=== PATIENT | female | born 1985 | race Caucasian/White ===

== ENCOUNTER 2021-11-25 10:57 | Day surgery (SDC) | payer BC, MEDICAID ==
[~2021-11-25 10:57] MED LIST: Lactated Ringers 1,000 ML IV SCH; Lidocaine 1%/Sod Bicarbonate in NS 8.4% 1 ML Syringe IDERM PRN; Sodium Chloride 0.9% 10 ML Syringe FLUSH PRN; Sodium Chloride 0.9% 10 ML Syringe FLUSH SCH
[2021-11-25] MEDS ORDERED: Succinylcholine/Sod PF 100 MG/5 ML SYRINGE IV ONE (13:08)
[2021-11-25] MEDS ORDERED: Rocuronium 50 MG/5 ML Vial ONE ×2 (13:08→14:32)
[2021-11-25] MEDS ORDERED: Propofol 200 MG/20 ML SDV ONE (13:08)
[2021-11-25] MEDS ORDERED: fentaNYL 100 MCG/2 ML SDV ONE ×2 (13:09→14:34)
[2021-11-25] MEDS ORDERED: Midazolam 1 MG/ML 2 ML SDV ONE (13:09)
[2021-11-25] MEDS: Lidocaine 1% with EPINEPHrine 1:100,000 10 ML MDV ONE ×2 (14:01→14:21)
[2021-11-25] MEDS ORDERED: Ondansetron 4 MG/2 ML SDV ONE (14:17)
[2021-11-25] MEDS ORDERED: Sugammadex Sodium 200 MG/2 ML VIAL ONE (14:23)
[2021-11-25] MEDS ORDERED: Lidocaine 1% with EPINEPHrine 1:100,000 10 ML MDV ONE (14:38)
[2021-11-25] MEDS ORDERED: fentaNYL 100 MCG/2 ML SDV IVPUSH PRN (15:28)
[2021-11-25] MEDS ORDERED: HYDROmorphone 0.5 MG/0.5 ML Syringe IVPUSH PRN (15:28)
[2021-11-25] MEDS ORDERED: Ondansetron 4 MG/2 ML SDV IVPUSH PRN (15:28)
[2021-11-25] MEDS ORDERED: oxyCODONE 5 MG Tab PO ONE (16:30)
== END 2021-11-25 17:14 | disposition home or self-care (01) ==
LOC: JD.SDS 10:57
PROVIDERS: ATTEND Surgery
DX: K64.3 Fourth degree hemorrhoids (principal); K64.4 Residual hemorrhoidal skin tags; D64.9 Anemia, unspecified; F41.9 Anxiety disorder, unspecified; G43.909 Migraine, unspecified, not intractable, without status migrainosus; E66.9 Obesity, unspecified; E03.9 Hypothyroidism, unspecified; E55.9 Vitamin D deficiency, unspecified; F17.210 Nicotine dependence, cigarettes, uncomplicated; E11.9 Type 2 diabetes mellitus without complications; Z98.890 Other specified postprocedural states; Z79.899 Other long term (current) drug therapy; Z88.1 Allergy status to other antibiotic agents; Z68.41 Body mass index [BMI] 40.0-44.9, adult
CPT/HCPCS: 00902; 81025; A9270-GY; J0330; J1170; J2250; J2405; J2704; J3010; J7120